=== PATIENT | female | born 1965 | race Caucasian/White ===

== ENCOUNTER → 2021-10-15 | Outpatient (CLI) | payer OTHER | LOC: HEART CORB 08:00 | DX: R07.2 Precordial pain (principal); R06.02 Shortness of breath; I10 Essential (primary) hypertension; I08.1 Rheumatic disorders of both mitral and tricuspid valves; I27.20 Pulmonary hypertension, unspecified | CPT/HCPCS: 78452; 93017; 93306; A9502; J2785 ==